=== PATIENT | female | born 1930 | race Two or more races ===

== ENCOUNTER 2018-12-05 08:50 | Outpatient (CLI) | payer OTHER | END 2018-12-05 14:31 | disposition home or self-care (01) | LOC: RX STUDY 08:50 | DX: K44.9 Diaphragmatic hernia without obstruction or gangrene (principal); N12 Tubulo-interstitial nephritis, not specified as acute or chronic; K21.9 Gastro-esophageal reflux disease without esophagitis; R13.12 Dysphagia, oropharyngeal phase ==